=== PATIENT | female | born 1950 | race Caucasian/White ===

== ENCOUNTER 2017-03-10 02:51 | Inpatient (IN) | payer MEDICARE, OTHER ==
[~2017-03-10] VITALS: Ht 167.6 cm; Wt 85.3 kg
[~2017-03-10 02:51] MED LIST: AMBIEN5 MG PO; ANUSOL-HC25 MG RC; BAYER CHEWABLE81 MG PO; BIEST TD; CALCIUM CITRATE1 TAB PO; CO Q-10200 MG PO; FEXOFENADINE H180 MG PO; FISH OIL 1,0001 CA1 PO; LEXAPRO5 MG PO; MAGNESIUM OXID250 MG PO; PEPCID40 MG PO; PLAVIX75 MG PO; PRINIVIL10 MG PO; PROBIOTIC1 EAC1 PO; VITAMIN B COMPL1 TAB PO; VITAMIN D5000 UNIT PO
[2017-03-10 03:43] LABS: BASOPHILS 0.1 % (0-2); EOSINOPHILS 0 % (0-7); HEMATOCRIT 33.8 % (36.0-48.0); HEMOGLOBIN 11.5 g/dL (12-16); IMMATURE GRANULOCYTES 0.4 % (0-5); LYMPHOCYTES 5.3 % (15-50); MCH 29.2 pg (26.0-34.0); MCV 85.8 fL (80.0-100.0); MEAN PLATELET VOLUME 10.6 fL (7.4-10.4); MONOCYTES 6.4 % (2-11); NEUTROPHILS 87.8 % (40-80); PLATELET COUNT 230 10x3/uL (130-400); RBC 3.94 10x6/uL (4.00-5.40); RDW 13.9 % (11.5-14.5); WBC 13.5 10x3/uL (4.8-10.8)
[2017-03-10 04:05] LABS: ALBUMIN 2.7 g/dL (3.4-5.0); ALKALINE PHOSPHATASE 68 U/L (46-116); ALT (SGPT) 18 U/L (10-68); CALC OSMOLALITY 280 mosm/kg (275-300); CALCIUM 7.8 mg/dL (8.5-10.1); CARBON DIOXIDE 25.1 mmol/L (21.0-32.0); CHLORIDE - SERUM 98 mmol/L (98-107); CREATINE KINASE 72 UL (21-215); CREATININE - SERUM 1.7 mg/dL (0.6-1.3); GLUCOSE 116 mg/dL (74-106); PROTEIN - SERUM 7.3 g/dL (6.4-8.2); SODIUM 136 mmol/L (136-145); UREA NITROGEN 35 mg/dL (7-18); eGFR NON AFRICAN AMERICAN 32 mL/min (90-120)
[2017-03-10 04:14] LABS: POTASSIUM - SERUM 2.9 mmol/L (3.5-5.1); TROPONIN-I < 0.017 ng/mL (0.000-0.060)
--- NOTE | 2017-03-10 07:00 | NUR ---
AWAKE AND ALERT AT THIS TIME. DENIES PAIN AT THIS TIME. BED ALARM ON AND IN WORKING ORDER. CALL LIGHT IN REACH, DOOR OPEN. WILL CONTINUE WITH PLAN OF CARE.
--- NOTE | 2017-03-10 07:15 | NUR ---
CALLED FOR TELEMETRY AT THIS TIME. WAS TOLD THAT AN EXTRA MONITOR WOULD HAVE TO BE OBTAINED BEFORE ONE COULD PLACED ON THE PT.
[2017-03-10 08:18] VITALS: BP 127/65
[2017-03-10] MEDS ORDERED: HYDROCHLOROTHIA25 MG GT (08:55)
[2017-03-10] MEDS ORDERED: LISINOPRIL5 MG PO (08:56)
[2017-03-10] MEDS ORDERED: PEPCID40 MG PO (08:56)
[2017-03-10] MEDS ORDERED: ALLER-CHLOR4 MG PO (08:57)
[2017-03-10] MEDS ORDERED: VITAMIN C1000 MG PO (08:58)
[2017-03-10] MEDS ORDERED: SUPER B COMPLE150 MG PO (08:59)
[2017-03-10] MEDS ORDERED: FLAXSEED OIL1000 MG PO (08:59)
[2017-03-10] MEDS ORDERED: PROBIOTIC1 EAC1 PO (09:00)
--- NOTE | 2017-03-10 09:01 | NUR ---
TYLENOL ADMINISTERED FOR TEMP 102.0 AT THIS TIME.
[2017-03-10 09:18] VITALS: BMI 30.4
--- NOTE | 2017-03-10 10:01 | NUR ---
PT TAKEN TO CT AT THIS TIME. WILL MONITOR PT WHEN SHE RETURNS TO THE ROOM.
--- NOTE | 2017-03-10 10:30 | NUR ---
PRN MORPHINE AND ZOFRAN ADMINISTERED FOR PAIN 6/10 AND NAUSEA WITHOUT EMESIS.
[2017-03-10 12:49] VITALS: BP 103/52
[2017-03-10 13:46] VITALS: BP 123/58
--- NOTE | 2017-03-10 14:50 | NUR ---
16 FR MCGHEE CATHETER INSERTED PER ORDER USING STERILE TECNIQUE. PT TOLERATED WITHOUT COMPLAINTS. URINE SAMPLE OBTAINED. CALL LIGHT IN REACH, REQUESTING TYLENOL.
--- NOTE | 2017-03-10 15:36 | NUR ---
PRN NORCO ADMINISTERED WITH 325MG OF TYLENOL FOR PAIN AND FEVER. PT DENIES FURTHER NEEDS AT THIS TIME. BED ALARM REMAINS ON AND CALL LIGHT IN REACH. WILL CONTINUE WITH PLAN OF CARE.
[2017-03-10 15:53] LABS: APPEARANCE HAZY (CLEAR); COLOR YELLOW (YELLOW); LEUKOCYTE ESTERASE 1+ (NEGATIVE); NITRITE NEGATIVE (NEGATIVE); PROTEIN 1+ mg/dL (NEGATIVE); SPECIFIC GRAVITY 1.015 (1.005-1.020)
[2017-03-10 15:54] LABS: BILIRUBIN NEGATIVE (NEGATIVE); GLUCOSE NEGATIVE (NEGATIVE); KETONE SMALL mg/dL (NEGATIVE); UROBILINOGEN NORMAL (NORMAL)
[2017-03-10 15:58] LABS: BACTERIA MODERATE /hpf (NONE SEEN); EPITHELIAL CELLS 0-5 /hpf (0-5); RED CELLS - URINE 0-5 /hpf (0-5)
[2017-03-10 16:10] VITALS: BP 120/68
[2017-03-10 20:00] VITALS: BP 194/69
--- NOTE | 2017-03-10 20:31 | NUR ---
AWAKE,ALERT,NO COMPLIANTS VOICED. MCGHEE PATENT AND DRAINING CL YELLOW URINE. IV INFUSING TO LEFT HAND WITHOUT REDNESS OR EDEMA NOTED. LLE WITH DERREK WRAP INTACT WITHOUT DRAINAGE NOTED. TOES WARM PIN. CL IN REACH
[2017-03-11 04:00] VITALS: BP 113/68
--- NOTE | 2017-03-11 04:57 | NUR ---
PT IS ASLEEP WITH NO O2 IN PLACE AND EASY RESPIRATIONS NOTED. THERE IS A SPLINT TO THE LEFT LEG. THE BED IS LOW, RAILS UP X'S 2 WITH THE CALL LIGHT AT HAND.
--- NOTE | 2017-03-11 05:31 | NUR ---
AWAKE WIHT NO COMPLAINTS. CL IN REACH
[2017-03-11 06:19] LABS: BASOPHILS 0.1 % (0-2); EOSINOPHILS 0.2 % (0-7); HEMOGLOBIN 9.8 g/dL (12-16); IMMATURE GRANULOCYTES 0.4 % (0-5); LYMPHOCYTES 11.3 % (15-50); MCHC 33.8 g/dL (31.0-37.0); MCV 85.8 fL (80.0-100.0); MEAN PLATELET VOLUME 10.1 fL (7.4-10.4); MONOCYTES 8.5 % (2-11); NEUTROPHILS 79.5 % (40-80); PLATELET COUNT 248 10x3/uL (130-400); RBC 3.38 10x6/uL (4.00-5.40); RDW 14.7 % (11.5-14.5)
[2017-03-11 06:30] LABS: WBC 8.1 10x3/uL (4.8-10.8)
[2017-03-11 06:41] LABS: ANION GAP 12.4 mmol/L (8-16); BILIRUBIN - TOTAL 0.2 mg/dL (0.2-1.3); CARBON DIOXIDE 23.2 mmol/L (21.0-32.0); PHOSPHOROUS 1.8 mg/dL (2.5-4.9); POTASSIUM - SERUM 3.6 mmol/L (3.5-5.1); PROTEIN - SERUM 5.8 g/dL (6.4-8.2)
[2017-03-11 07:04] LABS: CREATININE - SERUM 1.2 mg/dL (0.6-1.3)
[2017-03-11 07:05] LABS: CALCIUM 6.4 mg/dL (8.5-10.1)
[2017-03-11 08:55] VITALS: BP 124/63
[2017-03-11 12:50] VITALS: Ht 167.6 cm; Wt 85.3 kg
[2017-03-11 13:07] VITALS: BP 126/69
--- NOTE | 2017-03-11 14:15 | NUR ---
Patient Name: SHAR CANELA Admission Status: ER Accout number: [id number] Admission Date: 03-10-2017 : 1950 Admission Diagnosis:UNSP FRACTURE OF LOWER END OF LEFT TIBIA, INIT FOR CLOS Attending: VISHAL Current LOS: 1 Anticipated DC Date: 03-15-2017 Planned Disposition: Home Primary Insurance: MEDICARE A & B Discharge Planning Comments: CM MET WITH PATIENT REGARDING D/C NEEDS AND PLANS. PATIENT STATED SHE LIVES WITH HER SPOUSE (BESSY) AND HE WILL DRIVE HER HOME AT DISCHARGE. PATIENT STATED SHE HAS 2 STEPS W/O RAILS TO ENTER HOME AND 1 FLIGHT OF STAIRS IN HOME WHICH SHE WILL NOT BE USING. PATIENT IS INDEPENDENT WITH HER CARE AND HAS NO DME AT HOME. PATIENTS PCP IS DR. PETTIT AND PHARMACY IS [facility] AT [facility]. PATIENT STATED SHE WANTED TO WAIT UNTIL AFTER SURGERY TO CHOOSE A HOME HEALTH-DID NOT FEEL GOOD RIGHT NOW. CM WILL CONTINUE TO FOLLOW PATIENT WITH D/C NEEDS AND PLANS. PCP DR. WILVER GUZMÁN AT [facility]- [phone] BESSY (SPOUSE) [phone] Senior Auditor: Odette Davila Is the patient Alert and Oriented? Yes 0 * How many steps to enter\exit or inside your home? 2 NO RAILS 0 * PCP DR. PETTIT 0 * Pharmacy [facility] 0 * Preadmission Environment Home with Family 0 * ADLs Independent 0 * Equipment None 0 * List name and contact numbers for known caregivers / representatives who currently or will assist patient after discharge: BESSY (SPOUSE) [phone] 0 * Community resources currently utilized None 0 * Can the patient safely return to the preadmission environment? Yes 0 * Has this patient been hospitalized within the prior 30 days at any hospital? No 0 Grand Total: 0
--- NOTE | 2017-03-11 15:50 | NUR ---
EKG DONE BY ELLIOT P[facility]Z AT THIS TIME. RATE SHOWS 150. SONAM CALLED FROM MONITOR STATION. HR 154. PAGED DAMIAN AT THIS TIME.
--- NOTE | 2017-03-11 15:55 | NUR ---
DR. SORIANO IN TO SEE PATIENT. VAGAL MANEUVERS DONE. HR DOWN TO 94. STATED HE WILL PUT HER ON BETA CONSTANTINO. PATIENT HAS NO COMPLAINTS. IV INTACT. CALL LIGHT WITHIN REACH.
[2017-03-11 16:18] VITALS: BP 120/723
[2017-03-11 17:10] LABS: THYROID STIMULATING HORMONE 0.61 uIU/mL (0.36-3.74)
--- NOTE | 2017-03-11 18:00 | NUR ---
DR. SAENZ STATED THAT HE IS NOT GOING TO TAKE THE PATIENT TO SURGERY TOMORROW BC HER LEG IS STILL TO SWOLLEN. NO NPO P MN. LET ANTHONY WEBER KNOW. PATIENT HAS NO COMPLAINTS AT THIS TIME. CALL LIGHT WITHIN REACH.
--- NOTE | 2017-03-11 19:30 | NUR ---
PT IS RESTING IN BED WITH EYES OPEN. ALERT AND ORIENTED X 3. SHE DENIES ACUTE PAIN OR DISCOMFORT AT THIS TIME, BUT VOICED AGGRAVATION ABOUT HEARING IV PUMPS BEEPING AT TIMES. LEFT LEG IS ELEVATED UP ON 2 PILLOWS TO REDUCE EDEMA. IV IS INFUSING TO LEFT HAND WITHOUT DIFFICULTY. MCGHEE CATH IS PATENT AND DRAINING CLEAR YELLOW URINE TO A GRAVITY BAG. TELEMETRY UNIT IS ON AND INTACT. SR'S ARE UP X 3 IN BED. CALL LIGHT AND BEDSIDE TABLE ARE WITHIN EASY REACH.
[2017-03-11 20:00] VITALS: BP 125/73
--- NOTE | 2017-03-11 22:01 | NUR ---
PT ASSISTED TO REPOSITION IN BED FOR COMFORT. NO FURTHER NEEDS VOICED.
[2017-03-12] VITALS: BP 121/79
--- NOTE | 2017-03-12 00:41 | NUR ---
PT IS RESTING IN BED WITH EYES CLOSED. NO DISTRESS NOTED.
--- NOTE | 2017-03-12 03:21 | NUR ---
PT RESTING IN BED WITH EYES CLOSED.
[2017-03-12 04:00] VITALS: BP 135/78
--- NOTE | 2017-03-12 05:00 | NUR ---
ASSESSED, PT IS ASLEEP WITH NO DISTRESS NOTED. EASY RESPIRATIONS. CAST IN PLACE TO LEFT LEG. THE BED IS LOW, RAILS UP X'S 2 WITH THE CALL LIGHT AT HAND.
[2017-03-12 05:59] LABS: BASOPHILS 0.2 % (0-2); EOSINOPHILS 0.5 % (0-7); HEMATOCRIT 30.1 % (36.0-48.0); HEMOGLOBIN 10.3 g/dL (12-16); IMMATURE GRANULOCYTES 0.5 % (0-5); MCH 28.9 pg (26.0-34.0); MCHC 34.2 g/dL (31.0-37.0); MCV 84.3 fL (80.0-100.0); MEAN PLATELET VOLUME 9.7 fL (7.4-10.4); NEUTROPHILS 76.8 % (40-80); PLATELET COUNT 257 10x3/uL (130-400); RBC 3.57 10x6/uL (4.00-5.40); RDW 14.8 % (11.5-14.5); WBC 8.4 10x3/uL (4.8-10.8)
--- NOTE | 2017-03-12 05:59 | NUR ---
PT IS RESTING IN BED WITH EYES CLOSED. AWAKENS EASILY TO VERBAL STIMULI. DENIES ACUTE DISCOMFORT. NO NEEDS VOICED.
[2017-03-12 06:19] LABS: ALBUMIN 1.9 g/dL (3.4-5.0); ANION GAP 15.6 mmol/L (8-16); BILIRUBIN - TOTAL 0.22 mg/dL (0.2-1.3); CARBON DIOXIDE 20.3 mmol/L (21.0-32.0); CREATININE - SERUM 0.9 mg/dL (0.6-1.3); MAGNESIUM - SERUM 1.8 mg/dL (1.8-2.4); PHOSPHOROUS 1.7 mg/dL (2.5-4.9); POTASSIUM - SERUM 3.9 mmol/L (3.5-5.1)
[2017-03-12 06:30] LABS: CALCIUM 6.3 mg/dL (8.5-10.1)
--- NOTE | 2017-03-12 07:35 | NUR ---
A&O, DENIES NEEDS, BED LOWEST POSITION, CALL LIGHT IN REACH, WILL CONTINUE TO MONITOR
[2017-03-12 09:13] VITALS: BP 132/80
--- NOTE | 2017-03-12 12:00 | NUR ---
RESPIRATIONS EVEN AND NON LABORED. MCGHEE CATHETER PATENT AND DRAINING TO GRAVITY. DENIES NEEDS AT THIS TIME. CALL LIGHT IN REACH, WILL CONTINUE WITH PLAN OF CARE.
[2017-03-12 13:11] VITALS: BP 131/84
[2017-03-12 18:05] VITALS: BP 127/82
--- NOTE | 2017-03-12 19:35 | NUR ---
PT IS RESTING IN BED DOING A UPDRAFT TX. ALERT AND ORIENTED X 3. DENIES ACUTE DISCOMFORT AT THIS TIME. LEFT LEG IS ELEVATED ON PILLOWS TO PROMOTE EDEMA REDUCTION. MCGHEE CATH IS PATENT AND DRAINING TO A GRAVITY BAG. CLEAR YELLOW URINE NOTED. TELEMETRY IS ON AND INTACT. LEFT FOOT PLEXI BOOT IS ON. IV IS INFUSING TO LEFT HAND WITHOUT DIFFICULTY. SR'S ARE UP X 3 IN BED. CALL LIGHT AND BEDSIDE TABLE ARE WITHIN EASY REACH.
[2017-03-12 20:00] VITALS: BP 135/81
--- NOTE | 2017-03-12 21:44 | NUR ---
PT IS RESTING IN BED WATCHING TV. NO NEEDS VOICED. PT ASSISTED TO REPOSITION FOR COMFORT.
--- NOTE | 2017-03-13 00:01 | NUR ---
PT IS RESTING IN BED WITH EYES CLOSED. NO DISTRESS NOTED.
--- NOTE | 2017-03-13 01:02 | NUR ---
SLEEPING NO DISTRESS NOTED. SR UP X 2. CALL LIGHT WITHIN REACH.
--- NOTE | 2017-03-13 03:19 | NUR ---
PT IS RESTING QUIETLY IN BED WITH EYES CLOSED.
[2017-03-13 04:00] VITALS: BP 151/88
[2017-03-13 06:50] LABS: BASOPHILS 0.3 % (0-2); HEMATOCRIT 29.3 % (36.0-48.0); HEMOGLOBIN 10.1 g/dL (12-16); IMMATURE GRANULOCYTES 0.9 % (0-5); MCH 29.4 pg (26.0-34.0); MCHC 34.5 g/dL (31.0-37.0); MCV 85.2 fL (80.0-100.0); MONOCYTES 7.6 % (2-11); NEUTROPHILS 74.2 % (40-80); RBC 3.44 10x6/uL (4.00-5.40); RDW 15.2 % (11.5-14.5); WBC 7.7 10x3/uL (4.8-10.8)
[2017-03-13 06:55] LABS: PLATELET COUNT 309 10x3/uL (130-400)
[2017-03-13 07:09] LABS: ALBUMIN 1.9 g/dL (3.4-5.0); ANION GAP 13.1 mmol/L (8-16); BILIRUBIN - TOTAL 0.2 mg/dL (0.2-1.3); MAGNESIUM - SERUM 1.6 mg/dL (1.8-2.4); POTASSIUM - SERUM 4.1 mmol/L (3.5-5.1); PROTEIN - SERUM 5.9 g/dL (6.4-8.2)
[2017-03-13 07:10] LABS: PHOSPHOROUS 2.3 mg/dL (2.5-4.9)
[2017-03-13 07:11] LABS: CALCIUM 6.5 mg/dL (8.5-10.1)
--- NOTE | 2017-03-13 07:40 | NUR ---
SITTING IN BED, DENIES NEEDS, BREATHING EVEN ADN UNLABORED, CALL LIGHT IN REACH, WILL CONTINUE TO MONITOR
[2017-03-13 09:12] VITALS: BP 123/73
--- NOTE | 2017-03-13 15:24 | NUR ---
ASSISSTED PT OFF THE BED PANCHAL AT THIS TIME, STOOL SAMPLE COLLECTED. PT HAS NO COMPLAINTS AT THIS TIME. BED IN LOW POSITION AND CALL LIGHT WITHIN REACH. WILL CONTINUE TO MONITOR.
--- NOTE | 2017-03-13 19:40 | NUR ---
RECIEVED SHIFT REPORT. PT IS LYING IN BED. ALERT AND ORIENTED AND ABLE TO VERBALIZE NEEDS. IV IS PATENT AND FLUIDS ARE RUNNING PER ORDER. MCGHEE IS DRAINING URINE BY GRAVITY. PLEXI BOOTS ON. PT DENIES ANY PAIN AT THIS TIME. NO NEEDS ARE VERBALIZED AT THIS TIME. WILL CONTINUE TO MONITOR. SIDE RAILS ARE UP X 2. BED IS IN LOWEST POSITION. CALL LIGHT IS WITHIN REACH.
[2017-03-13 20:00] VITALS: BP 130/84
--- NOTE | 2017-03-13 20:51 | NUR ---
SHIFT ASSESSMENT COMPLETED. NIGHT MEDS GIVEN WITH NO PROBLEMS. NO NEEDS ARE VOICED. WILL MONITOR. SIDE RAILS X 2. BED LOW. CALL LIGHT IN REACH.
[2017-03-14] VITALS: BP 118/78
[2017-03-14 04:00] VITALS: BP 134/74
[2017-03-14 05:58] LABS: BASOPHILS 0.3 % (0-2); EOSINOPHILS 1.9 % (0-7); HEMATOCRIT 30.7 % (36.0-48.0); HEMOGLOBIN 10.4 g/dL (12-16); IMMATURE GRANULOCYTES 1.1 % (0-5); LYMPHOCYTES 12.3 % (15-50); MCH 29.1 pg (26.0-34.0); MCHC 33.9 g/dL (31.0-37.0); MEAN PLATELET VOLUME 10.1 fL (7.4-10.4); MONOCYTES 7.5 % (2-11); NEUTROPHILS 76.9 % (40-80); PLATELET COUNT 348 10x3/uL (130-400); RBC 3.57 10x6/uL (4.00-5.40); RDW 15.3 % (11.5-14.5); WBC 8.8 10x3/uL (4.8-10.8)
[2017-03-14 06:16] LABS: ALBUMIN 1.9 g/dL (3.4-5.0); ANION GAP 12.9 mmol/L (8-16); BILIRUBIN - TOTAL 0.2 mg/dL (0.2-1.3); MAGNESIUM - SERUM 1.8 mg/dL (1.8-2.4); POTASSIUM - SERUM 3.9 mmol/L (3.5-5.1)
--- NOTE | 2017-03-14 07:45 | NUR ---
PT ASSESSMENT COMPLETE AWAKE AND ALERT ORIENTED X [address] SAENZ IN ROOM DRESSING CHANGED TO LEFT LOWER EXTREMITY. ALL ADLS PER STAFF ASSIST MCGHEE PATENT TO CLEAR YELLOW URINE. PLEXI PULSES NOTED TO BLE. PIV TO LEFT FORARM PATENT TO IVF PER ORDER. PT DENIES PAIN AT THIS TIME PAIN MEDS OFFERED REFUSED.
[2017-03-14 08:25] VITALS: BP 126/77
--- NOTE | 2017-03-14 14:50 | NUR ---
PT RESTING IN BED HAD COMPLAINED EARLIER OF NAUSEA TREATED PER ORDER WITH ZOFRAN. NO FURTHER COMPLAINT OF NAUSEA NOTED
--- NOTE | 2017-03-14 15:57 | NUR ---
PT AOX4 RESP EVEN AND NONLABORED PT DENIES PAIN AT THIS TIME IV TO LEFT HAND PATENT AND INTACT AT THIS TIME PT HERE FOR TIB/FIB FRACTURE WITH ORIF SCHEDULED FOR TOMORROW SRX2 BED AT LOWEST SETTING CALL LIGHT WITHIN REACH WILL CONTINUE TO MONITOR
[2017-03-14 19:00] VITALS: BP 122/75
--- NOTE | 2017-03-14 19:28 | NUR ---
CM RECEIVED MD ORDER REGARDING REHAB AT [facility] AT DISCHARGE. PATIENT HAS SURGERY SCHEDULED FOR TUESDAY. TC TO [facility]. SPOKE WITH MESHA. FAXED INITIAL CLINICAL FOR REVIEW. CM WILL FOLLOW TO ASSIT W/ DCP.
--- NOTE | 2017-03-14 19:40 | NUR ---
RECIEVED SHIFT REPORT. PT IS LYING IN BED. ALERT AND ORIENTED AND ABLE TO VERBALIZE NEEDS. IV IS PATENT AND FLUIDS ARE RUNNING PER ORDER. MCGHEE IS DRAINING URINE BY GRAVITY. PT REQUIRES MINIMAL ASSISTANCE TURNING IN BED FOR COMFORT AND SKIN CARE. PT DENIES ANY PAIN AT THIS TIME. PLEXI BOOTS ON. NO NEEDS ARE VERBALIZED AT THIS TIME. WILL CONTINUE TO MONITOR. SIDE RAILS ARE UP X 2. BED IS IN LOWEST POSITION. CALL LIGHT IS WITHIN REACH.
--- NOTE | 2017-03-14 20:30 | NUR ---
SHIFT ASSESSMENT COMPLETED. NIGHT MEDS GIVEN WITH NO PROBLEMS. NO NEEDS ARE VOICED. WILL MONITOR. SIDE RAILS X 2. BED LOW. CALL LIGHT IN REACH.
[2017-03-15] VITALS (8 sets, daily range): BP systolic 111–138; BP diastolic 61–89
[2017-03-15 06:39] LABS: BASOPHILS 0.3 % (0-2); EOSINOPHILS 1.6 % (0-7); HEMATOCRIT 30.6 % (36.0-48.0); HEMOGLOBIN 10.3 g/dL (12-16); IMMATURE GRANULOCYTES 1.7 % (0-5); LYMPHOCYTES 12.9 % (15-50); MCH 29.1 pg (26.0-34.0); MCHC 33.7 g/dL (31.0-37.0); MCV 86.4 fL (80.0-100.0); MEAN PLATELET VOLUME 9.9 fL (7.4-10.4); MONOCYTES 4.8 % (2-11); NEUTROPHILS 78.7 % (40-80); PLATELET COUNT 339 10x3/uL (130-400); RBC 3.54 10x6/uL (4.00-5.40); RDW 15.1 % (11.5-14.5); WBC 9.9 10x3/uL (4.8-10.8)
[2017-03-15 06:51] LABS: ALBUMIN 1.9 g/dL (3.4-5.0); ANION GAP 15.5 mmol/L (8-16); BILIRUBIN - TOTAL 0.2 mg/dL (0.2-1.3); CARBON DIOXIDE 22.8 mmol/L (21.0-32.0); MAGNESIUM - SERUM 1.6 mg/dL (1.8-2.4); POTASSIUM - SERUM 4.3 mmol/L (3.5-5.1); PROTEIN - SERUM 5.8 g/dL (6.4-8.2)
--- NOTE | 2017-03-15 08:23 | NUR ---
AWAKE AND ALERT. ORIENTED X3. C/O SOME PAIN IN LEFT LEG. WILL MONITOR. LUNGS ARE CLEAR BILATERALLY, NO COUGH NOTED. SKIN IS INTACT WITHOUT REDNESS. IV TO LEFT HAND IS PATENT WITHOUT REDNESS AT INSERTION SITE. DENIES NEEDS AT THIS TIME.
--- NOTE | 2017-03-15 09:00 | NUR ---
OFF UNIT VIA BED TO SURGERY.
--- NOTE | 2017-03-15 15:04 | NUR ---
NUTRITION MONITORING & EVAL CHART REVIEWED. PT OOR FOR PROCEDURE. WILL MONITOR DIET ADVANCEMENT, PO INTAKE. RD FOLLOWING
--- NOTE | 2017-03-15 15:17 | NUR ---
RETURNED FROM SURGERY. A/O X3. NO C/O AT THIS TIME. DRESSING TO LEFT LEG DRY AND INTACT.
--- NOTE | 2017-03-15 17:30 | NUR ---
FULL LIQUID SUPPER SERVED IN ROOM ATE ALL OF MEAL. DENIES NEEDS. AT THIS TIME.
--- NOTE | 2017-03-15 18:00 | NUR ---
REQUESTED AND GIVEN ONE PERCOCET PO FOR C/O BURNING SENSATION TO LEFT LEG. WILL MONITOR.
--- NOTE | 2017-03-15 19:15 | NUR ---
REPORTS GOOD RELLIEF WITH PERCOCET. DENIES NEEDS.
--- NOTE | 2017-03-15 19:35 | NUR ---
RECIEVED SHIFT REPORT. PT IS LYING IN BED. ALERT AND ORIENTED AND ABLE TO VERBALIZE NEEDS. IV IS PATENT AND FLUIDS ARE RUNNING PER ORDER. O2 @ 3 PER NASAL CANNULA. DRESSING TO LEFT LOWER LEG C/D/I. MCGHEE IS DRAINING URINE BY GRAVITY. PLEXI BOOTS ON. PT STATES PAIN IS 1/10. NO NEEDS ARE VERBALIZED AT THIS TIME. WILL CONTINUE TO MONITOR. SIDE RAILS ARE UP X 2. BED IS IN LOWEST POSITION. CALL LIGHT IS WITHIN REACH.
--- NOTE | 2017-03-15 20:55 | NUR ---
SHIFT ASSESSMENT COMPLETED. NIGHT MEDS GIVEN WITH NO PROBLEMS. NO NEEDS ARE VOICED. WILL MONITOR. SIDE RAILS X 2. BED LOW. CALL LIGHT IN REACH.
[2017-03-16 04:00] VITALS: BP 145/61
[2017-03-16 06:02] LABS: BASOPHILS 0 % (0-2); EOSINOPHILS 0 % (0-7); HEMATOCRIT 30.3 % (36.0-48.0); HEMOGLOBIN 10.1 g/dL (12-16); IMMATURE GRANULOCYTES 0.4 % (0-5); LYMPHOCYTES 6.3 % (15-50); MCH 28.9 pg (26.0-34.0); MCHC 33.3 g/dL (31.0-37.0); MCV 86.6 fL (80.0-100.0); MEAN PLATELET VOLUME 10.4 fL (7.4-10.4); MONOCYTES 4.5 % (2-11); NEUTROPHILS 88.8 % (40-80); PLATELET COUNT 311 10x3/uL (130-400); RDW 15.2 % (11.5-14.5)
[2017-03-16 06:07] LABS: WBC 16.4 10x3/uL (4.8-10.8)
[2017-03-16 06:18] LABS: CARBON DIOXIDE 22.8 mmol/L (21.0-32.0); CHLORIDE - SERUM 107 mmol/L (98-107); CREATININE - SERUM 0.8 mg/dL (0.6-1.3); GLUCOSE 115 mg/dL (74-106); SODIUM 140 mmol/L (136-145); eGFR NON AFRICAN AMERICAN 75 mL/min (90-120)
[2017-03-16 06:26] LABS: CALC OSMOLALITY 282 mosm/kg (275-300); CALCIUM 6.9 mg/dL (8.5-10.1); POTASSIUM - SERUM 5.5 mmol/L (3.5-5.1); UREA NITROGEN 21 mg/dL (7-18)
--- NOTE | 2017-03-16 07:30 | NUR ---
AWAKE AND ALERT. ORIENTED X3. NO C/O THIS AM. SOME FEELING RETURNING TO LEFT TIB FIB. ICE APPLIED TO AREA. LUNGS ARE CLEAR BILATERALLY, NO COUGH NOTED. ENCOURAGED TO USE IS WA. SKIN IS INTACT WITHOUT REDNESS EXCEPT TO LEFT LOWER EXTREMETY INCISION WHICH HAS A DRY INTACT DRESSING IN PLACE. IV TO RIGHT FOREARM IS PATENT WITHOUT REDNESS AT INSERTION SITE. BREAKFAST ORDERED FOR PATIENT.
--- NOTE | 2017-03-16 08:00 | NUR ---
SITTING UP IN BED ALERT AND ORIENTED X4. PT STATES SHE IS ABLE TO FEEL HER FOOT BELOW THE TOE LINE AND WIGGLE TOES. PT REQUESTS SOMETHING FOR PAIN AFTER BREAKFAST DUE TO STARTING TO FEEL BURNING SENSATION IN THE LEFT LOWER EXTREMITY. CALL LIGHT IN REACH, BED LOW. WILL CONTINUE TO MONITOR
[2017-03-16 08:18] VITALS: BP 121/69
--- NOTE | 2017-03-16 08:54 | NUR ---
ADMINISTERED NORCO 5MG PER PT REQUEST OF PAIN 4/10 LEFT LOWER EXTREMITY. OFFERS NO OTHER COMPLAINTS AT THIS TIME. WILL CONTINUE TO MONITOR
--- NOTE | 2017-03-16 11:40 | NUR ---
REQUESTED AND GIVEN ONE PERCOCET PO FOR BURNING SENSATION IN LLE. WILL MONITOR.
[2017-03-16 12:39] VITALS: BP 105/68
--- NOTE | 2017-03-16 13:54 | CN ---
PATIENT NAME:SHAR MAIER MEDICAL RECORD: [id number] : 46 LOCATION:D[id number] ADMIT DATE: 03/10/17 ACCOUNT: [id number] CONSULTING PHYSICIAN: DARRELL BAZZI MD REFERRING PHYSICIAN: ROMÁN SORIANO DO DATE OF CONSULTATION: 03/12/2017 DIAGNOSES: 1. Paroxysmal atrial fibrillation. 2. Status post leg fracture. 3. Syncope. HISTORY OF PRESENT ILLNESS: Mrs. Maier had syncope and leg fracture, has had the leg repaired, she keeps having episodes of atrial fibrillation, heart rates in the 150-170 range. She was started on Lopressor; however, continues to be quite tachycardic and having episodes of atrial fibrillation. She had a cardiac catheterization within the last 2 years, this was normal with no significant coronary artery disease. She was not having a dysrhythmia at that time. PHYSICAL EXAMINATION: GENERAL APPEARANCE: Well-nourished, well-developed, appears stated age. Level of distress, comfortable. PSYCHIATRIC: Mental status, alert, normal affect. Orientation, oriented to time, place and person. EYES: Lids and conjunctiva, noninjected. No discharge, no pallor. ENT: Lips, teeth, gums, normal dentition. Oropharynx, no cyanosis, no pallor. NECK: Carotid arteries, bilateral normal upstroke, no bruits, no thrills. JUGULAR VEINS: No jugular venous pressure or distention. CERVICAL LYMPH NODES: Nontender, nonenlarged. THYROID: Not enlarged. Nontender. No nodules. LUNGS: Respiratory effort, unlabored. CHEST: Normal curvature. No thoracic deformity. No chest wall tenderness. Percussion, resonant. Auscultation, clear. No wheezes, no rales, no rhonchi. CARDIOVASCULAR: Precordial exam, nondisplaced. No heaves or pericardial thrills. Rate and rhythm, regular. Heart sounds, normal S1, normal S2. No S3, no gallop, no rub. Systolic murmur, not heard. Diastolic murmur, not heard. EXTREMITIES: No cyanosis, no edema. Peripheral pulses, full and equal in all extremities, except as noted. No bruits appreciated. ABDOMEN: Soft, nondistended. Normal aorta. No bruit. Nontender. No masses. Liver, nontender, no hepatomegaly. Spleen, nontender, no splenomegaly. MUSCULOSKELETAL: No joint tenderness. No joint swelling. No erythema. NEUROLOGICAL: Normal gait, normal strength, normal tone. SKIN: Warm and dry. OVERALL IMPRESSION: We will discontinue the Lopressor and put her on sotalol 120 mg b.i.d. Hopefully, this will do a better job of controlling her dysrhythmia. No other cardiac workup or treatments necessary other than pharmacologic therapy for the atrial fibrillation. TRANSINT:[id number] Voice Confirmation ID: [id number] DOCUMENT ID: [id number] CONSULT REPORT [id number] SHAR MAIER JEFFREY MD at 1354 CC: [id number] DICTATION DATE: 03/12/17 1159 PLAYGROUND WORKER: 03/12/17 1546 [facility] [address] [place] [address]
--- NOTE | 2017-03-16 14:09 | NUR ---
USED SHOWER CAP TO SHAMPOO HAIR AT THIS TIME PER STAFF. PATIENT STATED IT FELT GOOD TO HER.
[2017-03-16 15:59] VITALS: BP 97/56
--- NOTE | 2017-03-16 18:23 | NUR ---
ATE MOST OF SUPPER. DENIES NEEDS. NO CHANGES NOTED.
[2017-03-16 20:00] VITALS: BP 117/61
--- NOTE | 2017-03-16 20:07 | NUR ---
ANSWERED PATIENT'S CALL LIGHT, SHE REQUESTED A CUP OF ICE FOR HER ENSURE AND A PERCOCET. ADMINISTERED PERCOCET PER PRN ORDER. BROUGHT PATIENT A CUP OF ICE, POURED THE ENSURE OVER IT FOR HER. BED IN LOWEST POSITION, CALL LIGHT IN REACH. NO SIGNS OF DISTRESS NOTED.
--- NOTE | 2017-03-16 23:10 | NUR ---
PATIENT IS RESTING QUIETLY WITH EYES CLOSED.
[2017-03-17 04:00] VITALS: BP 107/60
[2017-03-17 05:58] LABS: BASOPHILS 0.1 % (0-2); EOSINOPHILS 1.1 % (0-7); HEMATOCRIT 29.6 % (36.0-48.0); HEMOGLOBIN 10.1 g/dL (12-16); IMMATURE GRANULOCYTES 0.5 % (0-5); LYMPHOCYTES 12.6 % (15-50); MCH 29.9 pg (26.0-34.0); MCHC 34.1 g/dL (31.0-37.0); MCV 87.6 fL (80.0-100.0); MEAN PLATELET VOLUME 9.8 fL (7.4-10.4); MONOCYTES 4.3 % (2-11); NEUTROPHILS 81.4 % (40-80); PLATELET COUNT 307 10x3/uL (130-400); RBC 3.38 10x6/uL (4.00-5.40); RDW 15.3 % (11.5-14.5)
[2017-03-17 06:30] LABS: ALBUMIN 1.8 g/dL (3.4-5.0); ANION GAP 12.1 mmol/L (8-16); BILIRUBIN - TOTAL 0.1 mg/dL (0.2-1.3); CALCIUM 7.3 mg/dL (8.5-10.1); CARBON DIOXIDE 25.9 mmol/L (21.0-32.0); PROTEIN - SERUM 5.6 g/dL (6.4-8.2)
[2017-03-17 06:31] LABS: CREATININE - SERUM 1.1 mg/dL (0.6-1.3)
--- NOTE | 2017-03-17 07:08 | NUR ---
PRN ATARAX ADMINISTERED FOR PAIN AT THIS TIME. IV PATENT AND ASSESSMENT PERFORMED PER FLOWSHEET. CALL LIGHT IN REACH AND BED ALARM ON. WILL CONTINUE WITH PLAN OF CARE.
[2017-03-17 07:55] VITALS: BP 131/48
[2017-03-17] MEDS ORDERED: ELIQUIS2.5 MG PO (08:07)
[2017-03-17] MEDS ORDERED: HYDROXYZINE HCL50 MG PO (08:07)
[2017-03-17] MEDS ORDERED: PERCOCET 10/3251 TA1 PO (08:07)
--- NOTE | 2017-03-17 10:05 | NUR ---
PRN PEROCOCET ADMINISTERED FOR PAIN 5/10 AT THIS TIME. DENIES FURTHER NEEDS. WILL CONTINUE WITH PLAN OF CARE.
[2017-03-17] MEDS ORDERED: LEVAQUIN750 MG PO (11:13)
--- NOTE | 2017-03-17 12:05 | NUR ---
TELEMETRY D/C PT IS TO TRANSFER TO [facility] THIS AFTERNOON.
--- NOTE | 2017-03-17 12:48 | NUR ---
REPORT CALLED TO GUS MORAES AT [facility], .
--- NOTE | 2017-03-17 13:18 | NUR ---
CM REASSESSMENT NOTE: PATIENT IS D/C TODAY BY FACILITY VAN TO A SKILLED BED AT [facility].
--- NOTE | 2017-03-17 13:54 | NUR ---
ASSISTED PT WITH DRESSING AT THIS TIME. IV TO RIGHT HAND D/C WITH CATH TIP INTACT.
--- NOTE | 2017-03-17 14:10 | NUR ---
D/C TO [facility] AT THIS TIME.
--- NOTE | 2017-03-19 12:31 | EC ---
PATIENT:SHAR CANELA DATE OF SERVICE: 03/10/17 SEX: F MEDICAL RECORD: [id number] DATE OF : [birth year] LOCATION:D.[facility] AGE OF PATIENT: 66 ADMISSION DATE: 03/10/17 REFERRING PHYSICIAN: INTERPRETING PHYSICIAN: DARRELL KILLIAN MD ECHOCARDIOGRAM REPORT ECHO CHARGES 4 ECHO COMPLETE CLINICAL DIAGNOSIS: SYNCOPE/SVT ECHOCARDIOGRAPHIC MEASUREMENTS (adult normal given) AC root (d.<3.7cm) 4.1 cm LV Septum d (<1.2 cm> 1.2 cm Valve Excursion 2.0 cm LV Septum (systole) 1.7 cm Left Atria (s.<4.0cm> 3.6 cm LVPW d(<1.2cm) 1.0 cm RV (d.<2.3cm) 4.0 cm LVPW (sytole) 1.5 cm LV diastole(<5.6CM) 4.4 cm MV E-F(>70mm/sec) cm LV systole 3.3 cm LVOT Diameter 1.6 cm MV exc.(>10mm) 1.1 cm Est.ejection fraction (50-75%) % Pericardial Effusion N DOPPLER: LVIT cm/sec A 57.0 cm/sec E 110 cm/sec LA cm/sec RVSP 41 mmHg LVOT 87 cm/sec AOP1/2T m/s Asc. Ao 140 cm/sec RVOT 79 cm/sec RA cm/sec PA 101 cm/sec AV Gradient Peak 7.80 mmHg AV Mean 4.16 mmHg AV Area 1.5 cm MV Gradient Peak 5.94 mmHg MV Mean 1.58 mmHg MV Area cm COMMENTS: Horses Or Mules Teamster: Mariella CLARK Acoustical Logging Engineer: 1 Dr. Killian TAPE# PACS DATE OF SERVICE: 03/12/2017 Echocardiogram FINDINGS: 1. Left ventricular chamber size is within normal limits. Left ventricular systolic function is normal. Overall ejection fraction estimated at 50%. 2. Left atrium is within normal limits at 3.6 cm. Right atrium and right ventricular chamber sizes are mildly dilated. 3. Valvular structures have normal structure and motion. ECHOCARDIOGRAM REPORT [id number] SHAR CANELA SAMPLE 4. Doppler interrogation reveals mild mitral regurgitation, [id number] tricuspid regurgitation, no other valvular insufficiency or stenosis. Pulmonary systolic pressure is elevated estimated at 41 mmHg. 5. No evidence of pericardial effusion or left ventricular thrombus. TRANSINT:[id number] Voice Confirmation ID: [id number] DOCUMENT ID: [id number] 03/18/2017 Edited to correct date of service, dmm. DARRELL KILLIAN MD at 1231 CC: [id number] DICTATION DATE: 03/14/17 1022 RAILWAY SIGNAL OPERATOR: 03/14/17 1210 [place] IN 03/17/17 [id number] [place] [address]
--- NOTE | 2017-03-21 08:59 | OP ---
PATIENT NAME: SHAR GOSS MEDICAL RECORD: [id number] :48 LOCATION:D.MS [id number] ADMISSION DATE:03/10/17 SURGEON: KAMILAH SAENZ DO DATE OF OPERATION: 03/15/2017 PROCEDURE PERFORMED: Left distal tibia open reduction internal fixation. PREOPERATIVE DIAGNOSIS: Left distal tibia fracture, displaced, closed. POSTOPERATIVE DIAGNOSIS: Left distal tibia fracture, displaced, closed. INDICATIONS: Ms. Goss is a 66-year-old female, who fell and twisted her left leg approximately a week ago and sustained a fracture to her distal tibia and proximal fibula as well. The spiral fracture in her tibia extended down into the tibial plafond noted on x-ray and CT. She was admitted to the hospital for fainting spells, as well as weakness and found to have a UTI. She had fevers in hospital day 1, 2 and 3. At that time, the swelling of her skin was too great in order to perform any procedures and she was placed on dressings and elevated and a foot pump was placed on her left foot, as well as a well-padded splint in order to facilitate the swelling, decreasing, it did on 03/15/2017, which is today, the day of the operation and her skin was amenable to surgery. The patient was informed of the risks and benefits of the surgery including numbness of the top of the foot from her superficial peroneal nerve as they approached, indeed the nerve would be seen and protected. After she consented to this procedure, she was taken to PACU. She was given a block by anesthesia. PRIMARY SURGEON: Kamilah Saenz DO. RUBBER PROCESS HAND: Francine Sparks, advanced nurse practitioner. DESCRIPTION OF PROCEDURE: The patient was given 2 grams Ancef preoperatively and taken to the operative suite. She was placed in supine position and then given anesthesia by the anesthesiologist, general anesthesia. The left leg was identified, prepped and draped in sterile fashion. Tourniquet was placed above the knee. At that time, timeout was performed indicating the correct procedure, patient and side and site, as well as confirming her about receiving antibiotics. At this time, the incision was marked out and the left leg was elevated and exsanguinated with an Esmarch. The tourniquet was inflated to 300 mmHg at that time. Incision was extended approximately 7 cm over the ankle joint and proximally just on the anterolateral side of the ankle and the distal tibia. Careful dissection was done down to the bone encountering the superficial peroneal nerve, which was identified and protected during the whole case. The fascia then over the extensor tendons, as well as the tibialis anterior of the left foot was incised and careful dissection was taken down to the bone. This was all retracted medially as was the superficial peroneal nerve. The joint line was then observed and a small fragment was encountered and several large fragments up in the shaft of the tibia were encountered as well. Attempts at reduction were made and lag screws were placed in the larger fragments proximal, lag screws were placed both lateral to medial and anterior to posterior. Then, attention was drawn to the joint and the small piece on the anterior joint line was put into place and 2.5 screws were placed into that small piece securing it and noting that the joint articular cartilage was reduced very well. At that time, the anterolateral plate was placed on the tibia and seemed to fit well. A 12-hole plate was decided to use as it span the fracture well and gave plenty of room for fixation proximally. There was a left OPERATIVE REPORT [id number] SHAR GOSS SAMPLE distal to the anterior lateral plate. We then proceeded to place locking screws distally at the joint line, 4 locking screws were placed at that time. Attention was then drawn at the shaft and a series of cortical screws were placed and locking screws as well, following those to not only reduce the fracture better, but secure the plate to the bone. This was all done under fluoroscopy ensuring correct size and reduction. During this procedure, the incision had to be extended to 21 cm approximately, so having a total length of incision, 21cm. At that time following fixation of the tibia due to the proximal fibular fracture and the syndesmosis was tested, the fibula was grasped with a crab claw and a stress view of the ankle joint and cotton test was performed under fluoroscopy, which did not reveal any syndesmosis widening at the ankle joint. Also, the medial malleolus of the ankle was stressed to make sure the plate was secure and it did not move either. After this was performed, copious amounts of normal saline were used to irrigate in the wound and the closure began first closing the ankle capsule with 0 Vicryl suture and then the inferior retinaculum was also closed with 0 Vicryl suture. The superior retinaculum as well as the fascia over the muscles of the lower tibia was also closed loosely approximated with 0 Vicryl in [id number] stitch. The superficial peroneal nerve was protected this time, it was placed on top of that closure and attention was then drawn to the skin where 2-0 Vicryl was used in inverted interrupted fashion to approximate the skin and 2-0 Prolene was used. At that time, the 2-0 Prolene was used in a modified Donati type knot as a retention suture to use a tension on the skin and the 3-0 Prolene was used in between those sutures and a horizontal mattress for the skin closure. The skin was then cleaned and Adaptic, 4 x 4s, ABDs and Webril were placed over the wound. The patient was placed into a well-padded splint on the posterior tibia down foot and the ankle was at 90 degrees. The counts were made and seemed to be correct and the patient was awakened in stable condition and taken to PACU. Estimated blood loss was 150 mL. The tourniquet was let down at 97 minutes during the procedure. TRANSINT:[id number] Voice Confirmation ID: [id number] DOCUMENT ID: [id number] KAMILAH SAENZ DO at 0859 CC: [id number] DICTATION DATE: 03/15/17 142 NAPPER GRINDER: 03/15/172125 DIS IN 03/17/17 [place] [id number] [place] [address]
== END 2017-03-17 14:10 | DRG 493 ==
LOC: D.ER 02:51 → D.MS 05:06 → OBSVTIME 05:06 → D.MS 13:57
PROVIDERS: Family Medicine; ADMIT Family Medicine
PROC: 2W3RX1Z Immobilization of Left Lower Leg using Splint (ICD-10-PCS; principal; 2017-03-10)
PROC: 0QSK04Z Reposition Left Fibula with Internal Fixation Device, Open Approach (ICD-10-PCS; 2017-03-15)
DX: S82.402A Unspecified fracture of shaft of left fibula, initial encounter for closed fracture (principal); N39.0 Urinary tract infection, site not specified; S82.302A Unspecified fracture of lower end of left tibia, initial encounter for closed fracture; W07.XXXA Fall from chair, initial encounter; R55 Syncope and collapse; R50.9 Fever, unspecified; R11.2 Nausea with vomiting, unspecified; E86.0 Dehydration; E87.6 Hypokalemia; I10 Essential (primary) hypertension; I25.10 Atherosclerotic heart disease of native coronary artery without angina pectoris; K21.9 Gastro-esophageal reflux disease without esophagitis; I25.2 Old myocardial infarction; F41.8 Other specified anxiety disorders; Z87.891 Personal history of nicotine dependence; R19.7 Diarrhea, unspecified

== ENCOUNTER 2017-04-10 21:26 | Emergency (ER) | payer MEDICARE, OTHER ==
[2017-03-11 12:50] VITALS: BMI 30.3
[~2017-04-10 21:26] MED LIST changes: +ALLER-CHLOR4 MG PO; +ELIQUIS2.5 MG PO; +FLAXSEED OIL1000 MG PO; +HYDROCHLOROTHIA25 MG GT; +HYDROXYZINE HCL50 MG PO; +LEVAQUIN750 MG PO; +LISINOPRIL5 MG PO; +PERCOCET 10/3251 TA1 PO; +SUPER B COMPLE150 MG PO; +VITAMIN C1000 MG PO
[2017-04-10 23:04] LABS: BASOPHILS 0.1 % (0-2); EOSINOPHILS 0.4 % (0-7); HEMATOCRIT 33.1 % (36.0-48.0); IMMATURE GRANULOCYTES 0.3 % (0-5); LYMPHOCYTES 29.9 % (15-50); MCH 28.4 pg (26.0-34.0); MCHC 33.2 g/dL (31.0-37.0); MCV 85.5 fL (80.0-100.0); MEAN PLATELET VOLUME 9.1 fL (7.4-10.4); MONOCYTES 7.6 % (2-11); NEUTROPHILS 61.7 % (40-80); PLATELET COUNT 299 10x3/uL (130-400); RBC 3.87 10x6/uL (4.00-5.40); RDW 15.3 % (11.5-14.5); WBC 6.8 10x3/uL (4.8-10.8)
[2017-04-10 23:08] LABS: APPEARANCE CLEAR (CLEAR); BILIRUBIN NEGATIVE (NEGATIVE); COLOR YELLOW (YELLOW); GLUCOSE NEGATIVE (NEGATIVE); KETONE NEGATIVE (NEGATIVE); LEUKOCYTE ESTERASE NEGATIVE (NEGATIVE); NITRITE NEGATIVE (NEGATIVE); PROTEIN NEGATIVE (NEGATIVE); SPECIFIC GRAVITY 1.005 (1.005-1.020); UROBILINOGEN NORMAL (NORMAL)
[2017-04-10 23:16] LABS: ALBUMIN 3.3 g/dL (3.4-5.0); ANION GAP 13.3 mmol/L (8-16); BILIRUBIN - TOTAL 0.49 mg/dL (0.2-1.3); CARBON DIOXIDE 25.6 mmol/L (21.0-32.0); POTASSIUM - SERUM 3.9 mmol/L (3.5-5.1); PROTEIN - SERUM 7.1 g/dL (6.4-8.2)
== END 2017-04-11 01:02 | disposition home or self-care (01) ==
LOC: D.ER 21:26
PROVIDERS: Emergency Medicine
DX: R11.2 Nausea with vomiting, unspecified (principal); R19.7 Diarrhea, unspecified

== ENCOUNTER 2017-04-26 15:49 | Emergency (ER) | payer MEDICARE, OTHER ==
[2017-03-11 12:50] VITALS: BMI 30.3
== END 2017-04-26 18:00 | disposition left against medical advice (07) ==
LOC: D.ER 15:49
DX: R00.2 Palpitations (principal)

== ENCOUNTER 2017-04-29 05:57 | Day surgery (SDC) | payer MEDICARE, OTHER ==
[~2017-04-29] VITALS: Ht 167.6 cm; Wt 81.6 kg
[2017-04-29 06:33] LABS: HEMATOCRIT 37.2 % (36.0-48.0); HEMOGLOBIN 12.3 g/dL (12-16); MCH 28.3 pg (26.0-34.0); MCHC 33.1 g/dL (31.0-37.0); MCV 85.7 fL (80.0-100.0); MEAN PLATELET VOLUME 10.1 fL (7.4-10.4); RBC 4.34 10x6/uL (4.00-5.40); RDW 15.1 % (11.5-14.5)
[2017-04-29] MEDS ORDERED: ZOFRAN4 MG PO (08:13)
[2017-04-29] MEDS ORDERED: SINGULAIR10 MG PO (08:13)
[2017-04-29] MEDS ORDERED: ULTRAM50 MG PO (08:13)
[2017-04-29] MEDS ORDERED: AMBIEN10 MG (08:14)
[2017-04-29 08:16] VITALS: BP 129/72; Ht 167.6 cm; Wt 81.6 kg
[2017-04-29] MEDS ORDERED: VIBRAMYCIN 100100 MG PO (08:36)
[2017-04-29] MEDS ORDERED: HYDROCODONE-APA1 TAB PO (08:36)
--- NOTE | 2017-04-29 15:15 | NUR ---
1345 IV DC WITH CATHER TIP INTACT
--- NOTE | 2017-05-02 08:05 | OP ---
PATIENT NAME: SHAR MAIER MEDICAL RECORD: [id number] :48 LOCATION:D.OPS ADMISSION DATE: SURGEON: TAVO SAENZ DO DATE OF OPERATION: 04/29/2017 PROCEDURE PERFORMED: Left tibia wound debridement with irrigation and application of Amniox graft over the site. PREOPERATIVE DIAGNOSIS: Left anterior tibial wound dehiscence. POSTOPERATIVE DIAGNOSIS: Left anterior tibial wound dehiscence. INDICATIONS: Ms. Maier is a 66-year-old female who underwent a left distal tibia open reduction internal fixation approximately 6 weeks ago. She was lost to follow up and followed up in the office 3 weeks after procedure and presented with a necrotic area and distal incision of the site as well as a large amount of swelling. We elevated her leg and give her foot pump and the swelling decreased, put collagen dressings on the wound itself and then this week, the wound had dehisced and opened up the distal spot where the area of skin necrosis was. Several calls were attempted and made to plastic surgeons for flap and none were available to do so on this patient, so [employer] was contacted and said they have a product that would work for it. Decision was made with the patient that we would try this first. She has consented for this procedure. GENERAL SURGEON: Tavo Saenz DO. PARAKEET RAISER: Francine Sparks, advance nurse practitioner. DESCRIPTION OF PROCEDURE: The patient was taken to the operative suite, given general anesthetic, placed in supine position. A timeout was performed and the left leg was prepped and draped. Everyone is in agreement that the left leg was correct leg. She was given 2 grams of Ancef preoperatively and the procedure commenced. The area of eschar of the necrotic skin was removed back to bleeding surface on the skin. The tendons were left intact and the superficial peroneal nerve was seen as well and the wound was left intact. Once this was done, it was irrigated thoroughly with approximately 1500 mL of irrigation with Ancef and the wound was dried and then the Amniox graft 8 x 3 was placed over the wound and then sutured in and then another 3 x 2 was used distally to get full coverage of the wound. Once this was done, it was sutured into place with 3-0 Monocryl and then Adaptic, Telfa, ABD, Kerlix and Arnoldo wrap was placed over the wound. The patient was awakened and taken to recovery in stable condition. Blood loss was minimal. TRANSINT:[id number] Voice Confirmation ID: [id number] DOCUMENT ID: [id number] TAVO SAENZ DO at 0805 CC: [id number] DICTATION DATE: 04/29/17 1256 GROUNDWATER MONITORING TECHNICIAN: 04/29/17 1801 [facility] 04/29/17 [place] [id number]
== END 2017-04-29 14:30 | disposition home or self-care (01) ==
LOC: D.OPS 05:57 → D.PAN 08:00 → D.OPS 14:30
PROVIDERS: Anesthesiology
DX: T81.89XA Other complications of procedures, not elsewhere classified, initial encounter (principal); M96.672 Fracture of tibia or fibula following insertion of orthopedic implant, joint prosthesis, or bone plate, left leg; G47.30 Sleep apnea, unspecified; K21.9 Gastro-esophageal reflux disease without esophagitis; I25.10 Atherosclerotic heart disease of native coronary artery without angina pectoris; I10 Essential (primary) hypertension; I47.1 Supraventricular tachycardia; Z01.812 Encounter for preprocedural laboratory examination; T81.30XA Disruption of wound, unspecified, initial encounter

== ENCOUNTER 2017-07-01 08:44 | Day surgery (SDC) | payer MEDICARE, OTHER ==
[~2017-07-01 08:44] MED LIST changes: +AMBIEN10 MG; +BAYER ASPIRIN325 MG PO; +HYDROCODONE-APA1 TAB PO; +SINGULAIR10 MG PO; +ULTRAM50 MG PO; +VIBRAMYCIN 100100 MG PO; +ZOFRAN4 MG PO
[2017-07-01] MEDS ORDERED: BETAPACE 80 MG80 MG PO (10:35)
[2017-07-01 10:46] VITALS: BP 104/58; BMI 29.9
[2017-07-01 11:25] LABS: HEMATOCRIT 36.7 % (36.0-48.0); HEMOGLOBIN 12.2 g/dL (12-16); MCH 28.2 pg (26.0-34.0); MCHC 33.2 g/dL (31.0-37.0); MCV 84.8 fL (80.0-100.0); MEAN PLATELET VOLUME 9.9 fL (7.4-10.4); RBC 4.33 10x6/uL (4.00-5.40); RDW 15.1 % (11.5-14.5); WBC 4.2 10x3/uL (4.8-10.8)
[2017-07-01] MEDS ORDERED: HYDROCODONE-APA1 TAB PO (15:43)
[2017-07-01] MEDS ORDERED: KEFLEX500 MG PO (15:44)
--- NOTE | 2017-07-01 17:34 | NUR ---
1710--IV DC'D, PT UP TO DRESS AT THIS TIME. ROSMERY VALENZUELA 1720--DISCHARGE INSTRUCTIONS GIVEN, PT VERBALIZES UNDERSTANDING. PT OFF UNIT VIA WC. PT OFF UNIT VIA WC. ROSMERY VALENZUELA
--- NOTE | 2017-07-01 18:54 | OP ---
PATIENT NAME: SHAR GOSS MEDICAL RECORD: [id number] :48 LOCATION:D.OPS ADMISSION DATE: SURGEON: KAMILAH SAENZ DO DATE OF OPERATION: 07/01/2017 PROCEDURE PERFORMED: Left lower extremity incision and debridement with Amniox and wound VAC application. PREOPERATIVE DIAGNOSIS: Left lower extremity wound dehiscence. POSTOPERATIVE DIAGNOSIS: Left lower extremity wound dehiscence. INDICATIONS: Ms. Goss is a 66-year-old female who underwent a left distal tibia ORIF back in February. She showed up to the office about 2-3 month later with a wound dehiscence. I washed it initially and then the wound split open more, I tried to find someone to do a flap as no one in the area did any type of flap work. We decided to put Amniox on the wound. This was done approximately 2-3 months ago and had covered the wound well, until recently had a small opening where he had an exposed tendon. This was noted on Tuesday. She was put on the schedule for today for reapplication of Amniox with a wound VAC in order to stimulate more healing. She was consented for procedure in the office and then consented today prior to surgery. SURGEON: Kamilah Saenz DO ANESTHESIA: She was given a block in the preoperative area. COMPLICATIONS: None. TOURNIQUET: No tourniquet. BLOOD LOSS: Minimal. DESCRIPTION OF PROCEDURE: After the block, the patient was taken to the operative suite, given general anesthetic, and the left lower extremity was prepped and draped in sterile fashion with Betadine. Once this was done, timeout was performed, everyone is in agreeance to correct side, site, and surgery and the patient. The surgery commenced with a blade roughing up the edges of the wound and then irrigation with normal saline and a scrub brush over the site to stimulate some reaction. Amniox was then applied over the tendon, tibialis anterior that was exposed and then the remaining was cut into strips horizontally and placed across the wound. This was tacked down into place with 4-0 Monocryl. Once this was done, the wound VAC small sponge was placed over that, and a wound VAC was attached. The patient was taken home. She is awakened and taken to recovery in stable condition. TRANSINT:[id number] Voice Confirmation ID: [id number] DOCUMENT ID: [id number] OPERATIVE REPORT [id number] SHAR GOSS MICHAEL D, DO at 1854 CC: [id number] DICTATION DATE: 07/01/17 1543 OPTICAL ENGINEERING MANAGER: 07/01/17 1721 [facility] 07/01/17 [facility] [address] [place] [id number]
[2017-08-04] MEDS ORDERED: VIBRAMYCIN 100100 MG PO (10:20)
== END 2017-07-01 17:20 | disposition home or self-care (01) ==
LOC: D.OPS 08:44 → D.PAN 11:15 → D.OPS 11:15
PROVIDERS: Anesthesiology
DX: T81.30XA Disruption of wound, unspecified, initial encounter (principal); I25.10 Atherosclerotic heart disease of native coronary artery without angina pectoris; I48.0 Paroxysmal atrial fibrillation; Z01.812 Encounter for preprocedural laboratory examination

== ENCOUNTER 2017-08-05 09:41 | Day surgery (SDC) | payer MEDICARE, OTHER ==
[~2017-08-05] VITALS: Ht 320 cm; Wt 81.6 kg
[~2017-08-05 09:41] MED LIST changes: +BETAPACE 80 MG80 MG PO; +KEFLEX500 MG PO
[2017-08-05 11:53] LABS: HEMATOCRIT 38.7 % (36.0-48.0); HEMOGLOBIN 12.7 g/dL (12-16); MCH 28.3 pg (26.0-34.0); MCHC 32.8 g/dL (31.0-37.0); MCV 86.2 fL (80.0-100.0); MEAN PLATELET VOLUME 9.7 fL (7.4-10.4); RBC 4.49 10x6/uL (4.00-5.40); RDW 15.1 % (11.5-14.5)
[2017-08-05 14:24] VITALS: BP 150/72; Ht 320 cm; Wt 81.6 kg
--- NOTE | 2017-08-05 14:40 | NUR ---
HAS DERREK ON LEFT FOOT.
[2017-08-05] MEDS ORDERED: HYDROCODON-ACE1 EAC7 PO (17:10)
--- NOTE | 2017-08-05 19:17 | NUR ---
1730 IV DC WITH CATHER TIP INTACT
--- NOTE | 2017-08-08 16:01 | OP ---
PATIENT NAME: SHAR CANELA MEDICAL RECORD: [id number] :48 LOCATION:D.OPS ADMISSION DATE: SURGEON: TAVO SAENZ DO DATE OF OPERATION: 08/05/2017 DATE OF SURGERY: 08/05/2017 PROCEDURE PERFORMED: Left lower leg wound irrigation and debridement with application of SurgiLogix. PREOPERATIVE DIAGNOSIS: Left leg wound dehiscence. POSTOPERATIVE DIAGNOSIS: Left leg wound dehiscence. INDICATIONS: Wolfgang is a 67-year-old female who back in February had a distal tibia fracture, put a plate on and she lost followup, returned and had a wound dehiscence. We tried to keep it elevated and avoid it from splitting open; however, it did. She had 2 applications of Amniox which did not fully cover the wound and thought we would get the SurgiLogix to try. SURGEON: Tavo Saenz D.O. COMPLICATIONS: None. BLOOD LOSS: Minimal. DESCRIPTION OF PROCEDURE: The patient was taken to operative suite, laid in supine position, given a gram of Ancef preoperatively. Once this was done, the left leg was prepped and draped with Betadine and draped in sterile fashion. After this was done, timeout was performed. It was agreed to correct side, site of the patient and the procedure commenced. We did I&D of the wound to get some bleeding surfaces around the periphery of the wound and then irrigated it very thoroughly. Once this was done, the SurgiLogix was placed on the wound 4 x 8 piece and then the injectable SurgiLogix SX injectable. We injected 1 mL diluted with 1 mL injectable saline and this was injected 0.5 cc at the 12, 6, 3 and 9 o'clock positions with a 25-gauge syringe. After this, a Telfa was placed over the wound with a 4 x 4 on top of that and then cast padding and 6-inch Arnoldo. Once this was done, the patient was awakened and taken to recovery in stable condition. TRANSINT:[id number] Voice Confirmation ID: [id number] DOCUMENT ID: [id number] TAVO SAENZ DO at 1606 CC: [id number] DICTATION DATE: 08/05/176 ADJUNCT LATIN PROFESSOR: 08/05/17 8749 [facility] 08/05/17 [facility] [address] [place] [address]
== END 2017-08-05 18:30 | disposition home or self-care (01) ==
LOC: D.OPS 09:41 → D.PAN 12:45 → D.OPS 12:45
PROVIDERS: Anesthesiology
DX: T81.30XD Disruption of wound, unspecified, subsequent encounter (principal); I10 Essential (primary) hypertension; K21.9 Gastro-esophageal reflux disease without esophagitis; F17.200 Nicotine dependence, unspecified, uncomplicated; Z01.812 Encounter for preprocedural laboratory examination; I25.10 Atherosclerotic heart disease of native coronary artery without angina pectoris
CPT/HCPCS: 15002; C5271

== ENCOUNTER → 2017-09-08 10:02 | Outpatient (CLI) | payer MEDICARE, OTHER ==
[~2017-09-08 10:02] MED LIST changes: +HYDROCODON-ACE1 EAC7 PO
[2017-09-08 10:36] LABS: BASOPHILS 0.5 % (0-2); EOSINOPHILS 2.4 % (0-7); HEMATOCRIT 38.6 % (36.0-48.0); HEMOGLOBIN 12.7 g/dL (12-16); IMMATURE GRANULOCYTES 0.2 % (0-5); LYMPHOCYTES 34.9 % (15-50); MCH 28.4 pg (26.0-34.0); MCHC 32.9 g/dL (31.0-37.0); MCV 86.4 fL (80.0-100.0); MONOCYTES 8.3 % (2-11); NEUTROPHILS 53.7 % (40-80); PLATELET COUNT 268 10x3/uL (130-400); RBC 4.47 10x6/uL (4.00-5.40); RDW 14.7 % (11.5-14.5); WBC 4.2 10x3/uL (4.8-10.8)
[2017-09-08 11:46] LABS: ERYTHROCYTE SEDIMENTATION RATE 24 mm/hr (0-30)
== END | disposition home or self-care (01) ==
LOC: D.CT 10:02
PROVIDERS: Orthopaedic Surgery
DX: S82.302A Unspecified fracture of lower end of left tibia, initial encounter for closed fracture (principal); X58.XXXA Exposure to other specified factors, initial encounter; Y93.89 Activity, other specified; Y92.89 Other specified places as the place of occurrence of the external cause

== ENCOUNTER 2017-10-31 10:01 | Inpatient (IN) | payer MEDICARE, OTHER ==
[~2017-10-31] VITALS: Ht 167.6 cm; Wt 86.2 kg
--- NOTE | ~2017-10-31 | CN ---
PATIENT NAME:SHAR GOSS MEDICAL RECORD: [id number] : 48 LOCATION:D.MS [id number] ADMIT DATE: 10/31/17 ACCOUNT: [id number] CONSULTING PHYSICIAN: DARRELL BAZZI MD REFERRING PHYSICIAN: REZA HARTLEY MD DATE OF CONSULTATION: 11/01/2017 DATE OF SERVICE: 11/01/2017. ADMITTING DIAGNOSES: 1. Deep vein thrombosis. 2. Possible pulmonary embolus. 3. Syncope. 4. Paroxysmal atrial fibrillation. 5. Hypertension. HISTORY OF PRESENT ILLNESS: Mrs. Goss has cardiac history of paroxysmal atrial fibrillation treated with sotalol, history of hypertension, on lisinopril, and episode of syncope today. She had a previous recent left lower extremity surgery and has been inactive, her venous Doppler is positive for deep vein thrombosis, her D-dimer is high. She has not undergone CT protocol for PE as of yet. She has been on telemetry, she has had no atrial fibrillation on telemetry. Her EKG is with no changes. Her troponin is normal. PHYSICAL EXAMINATION: GENERAL APPEARANCE: Well-nourished, well-developed, appears stated age. Level of distress, comfortable. PSYCHIATRIC: Mental status, alert, normal affect. Orientation, oriented to time, place and person. EYES: Lids and conjunctiva, noninjected. No discharge, no pallor. ENT: Lips, teeth, gums, normal dentition. Oropharynx, no cyanosis, no pallor. NECK: Carotid arteries, bilateral normal upstroke, no bruits, no thrills. JUGULAR VEINS: No jugular venous pressure or distention. CERVICAL LYMPH NODES: Nontender, nonenlarged. THYROID: Not enlarged. Nontender. No nodules. LUNGS: Respiratory effort, unlabored. CHEST: Normal curvature. No thoracic deformity. No chest wall tenderness. Percussion, resonant. Auscultation, clear. No wheezes, no rales, no rhonchi. CARDIOVASCULAR: Precordial exam, nondisplaced. No heaves or pericardial thrills. Rate and rhythm, regular. Heart sounds, normal S1, normal S2. No S3, no gallop, no rub. Systolic murmur, not heard. Diastolic murmur, not heard. EXTREMITIES: No cyanosis, no edema. Peripheral pulses, full and equal in all extremities, except as noted. No bruits appreciated. ABDOMEN: Soft, nondistended. Normal aorta. No bruit. Nontender. No masses. Liver, nontender, no hepatomegaly. Spleen, nontender, no splenomegaly. MUSCULOSKELETAL: No joint tenderness. No joint swelling. No erythema. NEUROLOGICAL: Normal gait, normal strength, normal tone. SKIN: Warm and dry. OVERALL IMPRESSION: At this time, is most likely deep vein thrombosis and noncardiac in etiology. We will get an echocardiogram. No other cardiac workup or treatment is necessary. TRANSINT:[id number] Voice Confirmation ID: [id number] DOCUMENT ID: [id number] CONSULT REPORT [id number] SHAR GOSS JEFFREY MD at 1202 CC: [id number] DICTATION DATE: 11/01/17 1203 FIELD RECRUITER: 11/01/17 1213 DIS IN 11/02/17 [facility] [address] [place] [address]
--- NOTE | ~2017-10-31 | EC ---
PATIENT:SHAR CANELA DATE OF SERVICE: 10/31/17 SEX: F MEDICAL RECORD: [id number] DATE OF : 46 LOCATION:D.MS [facility] AGE OF PATIENT: 67 ADMISSION DATE: 10/31/17 REFERRING PHYSICIAN: INTERPRETING PHYSICIAN: DARRELL KILLIAN MD ECHOCARDIOGRAM REPORT ECHO CHARGES 4 ECHO COMPLETE CLINICAL DIAGNOSIS: SYNCOPE ECHOCARDIOGRAPHIC MEASUREMENTS (adult normal given) AC root (d.<3.7cm) 3.4 cm LV Septum d (<1.2 cm> 1.3 cm Valve Excursion 2.2 cm LV Septum (systole) 1.4 cm Left Atria (s.<4.0cm> 4.3 cm LVPW d(<1.2cm) 1.6 cm RV (d.<2.3cm) 3.0 cm LVPW (sytole) 1.7 cm LV diastole(<5.6CM) 5.2 cm MV E-F(>70mm/sec) cm LV systole 3.8 cm LVOT Diameter 1.8 cm MV exc.(>10mm) 1.5 cm Est.ejection fraction (50-75%) % Pericardial Effusion N DOPPLER: LVIT cm/sec A 90.0 cm/sec E 59.0 cm/sec LA cm/sec RVSP 33 mmHg LVOT 84 cm/sec AOP1/2T m/s Asc. Ao 135 cm/sec RVOT 71 cm/sec RA cm/sec PA 109 cm/sec AV Gradient Peak 7.32 mmHg AV Mean 3.72 mmHg AV Area 1.6 cm MV Gradient Peak 3.95 mmHg MV Mean 1.26 mmHg MV Area cm COMMENTS: Deputy Director: Mariella CLARK Icu Tech: 1 Dr. Killian TAPE# PACS DATE OF SERVICE: 11/01/2017 PROCEDURE: Echocardiogram. FINDINGS: 1. Left ventricle chamber size is within normal limits. Left ventricular systolic function is normal. Overall ejection fraction estimated at 55%. 2. Left atrium, right atrium, and right ventricular chamber sizes are mildly dilated. Left atrium measures 4.3 cm. 3. Valvular structures have normal structure and motion. ECHOCARDIOGRAM REPORT [id number] SHAR CANELA SAMPLE 4. Doppler interrogation reveals mild mitral regurgitation, mild tricuspid regurgitation, no other valvular insufficiency or stenosis and pulmonary systolic pressure is normal estimated at 33 mmHg. 5. No evidence of pericardial effusion or left ventricular thrombus. TRANSINT:[id number] Voice Confirmation ID: [id number] DOCUMENT ID: [id number] DARRELL KILLIAN MD at 1202 CC: [id number] DICTATION DATE: 11/01/17 1221 ENDOSCOPY NURSE: 11/01/17 1225 DIS IN 11/02/17 [place] [id number] [place] [id number]
[2017-10-31 11:01] LABS: BASOPHILS 0.3 % (0-2); EOSINOPHILS 0.7 % (0-7); HEMATOCRIT 32.5 % (36.0-48.0); HEMOGLOBIN 10.3 g/dL (12-16); IMMATURE GRANULOCYTES 0.1 % (0-5); MCH 26.7 pg (26.0-34.0); MCHC 31.7 g/dL (31.0-37.0); MCV 84.2 fL (80.0-100.0); MEAN PLATELET VOLUME 8.8 fL (7.4-10.4); MONOCYTES 5.3 % (2-11); NEUTROPHILS 74.6 % (40-80); RBC 3.86 10x6/uL (4.00-5.40); RDW 15.5 % (11.5-14.5)
[2017-10-31 11:03] LABS: PLATELET COUNT 338 10x3/uL (130-400)
[2017-10-31 11:13] LABS: ALKALINE PHOSPHATASE 76 U/L (46-116); ALT (SGPT) 15 U/L (10-68); CALC OSMOLALITY 277 mosm/kg (275-300); CALCIUM 8.7 mg/dL (8.5-10.1); CARBON DIOXIDE 23.1 mmol/L (21.0-32.0); CHLORIDE - SERUM 102 mmol/L (98-107); GLUCOSE 112 mg/dL (74-106); POTASSIUM - SERUM 4.2 mmol/L (3.5-5.1); PROTEIN - SERUM 7.6 g/dL (6.4-8.2); SODIUM 137 mmol/L (136-145); UREA NITROGEN 20 mg/dL (7-18); eGFR NON AFRICAN AMERICAN 58 mL/min (90-120)
[2017-10-31 11:22] LABS: CREATINE KINASE 28 UL (21-215); PRO BNP 266 pg/mL (0-125); TROPONIN-I < 0.017 ng/mL (0.000-0.060)
[2017-10-31 18:05] VITALS: BMI 30.7
[2017-10-31 20:38] VITALS: BP 117/54
[2017-11-01 00:44] VITALS: BP 118/62
[2017-11-01 08:19] VITALS: BP 166/58
[2017-11-01 11:47] VITALS: BP 118/67
[2017-11-01 14:13] VITALS: Ht 167.6 cm; Wt 86.2 kg
[2017-11-01 16:03] VITALS: BP 120/57
[2017-11-01 20:25] LABS: % SATURATION 14 % (15-55); IRON 45 ug/dl (35-150); TOTAL IRON BIND CAPACITY 307 ug/dl (260-445); UNSAT IRON BIND CAPACITY 262 ug/dl (150-375)
[2017-11-01 22:18] VITALS: BP 124/68
[2017-11-02 04:29] VITALS: BP 135/81
[2017-11-02 08:44] LABS: BASOPHILS 0.4 % (0-2); HEMOGLOBIN 9.8 g/dL (12-16); LYMPHOCYTES 37.3 % (15-50); MCH 26.5 pg (26.0-34.0); MCHC 31.6 g/dL (31.0-37.0); MCV 83.8 fL (80.0-100.0); MEAN PLATELET VOLUME 9.2 fL (7.4-10.4); MONOCYTES 8.6 % (2-11); NEUTROPHILS 52.7 % (40-80); PLATELET COUNT 294 10x3/uL (130-400); RDW 15.5 % (11.5-14.5)
[2017-11-02 09:03] LABS: WBC 4.9 10x3/uL (4.8-10.8)
[2017-11-02 09:07] LABS: CALC OSMOLALITY 272 mosm/kg (275-300); CALCIUM 8.4 mg/dL (8.5-10.1); CHLORIDE - SERUM 104 mmol/L (98-107); CREATININE - SERUM 0.8 mg/dL (0.6-1.3); GLUCOSE 92 mg/dL (74-106); POTASSIUM - SERUM 3.9 mmol/L (3.5-5.1); SODIUM 137 mmol/L (136-145); eGFR NON AFRICAN AMERICAN 75 mL/min (90-120)
[2017-11-02 09:13] LABS: UREA NITROGEN 10 mg/dL (7-18)
[2017-11-02 09:16] VITALS: BP 127/61
[2017-11-02] MEDS ORDERED: ELIQUIS5 MG PO (12:15)
[2017-11-03 09:20] LABS: FOLATE (FOLIC ACID) - SERUM 18.6 ng/mL (>3.0)
== END 2017-11-02 17:39 | disposition home health service (06) | DRG 300 ==
LOC: D.ER 10:01 → D.EDHOLD 15:57 → D.MS 15:57
PROVIDERS: Emergency Medicine; Internal Medicine Nephrology
DX: I82.412 Acute embolism and thrombosis of left femoral vein (principal); N17.9 Acute kidney failure, unspecified; I82.432 Acute embolism and thrombosis of left popliteal vein; R55 Syncope and collapse; I48.0 Paroxysmal atrial fibrillation; I10 Essential (primary) hypertension; I08.1 Rheumatic disorders of both mitral and tricuspid valves; F41.8 Other specified anxiety disorders; K21.9 Gastro-esophageal reflux disease without esophagitis; G47.33 Obstructive sleep apnea (adult) (pediatric); G40.909 Epilepsy, unspecified, not intractable, without status epilepticus